=== PATIENT | female | born 1995 | race Caucasian/White ===

== ENCOUNTER → 2023-10-26 | Outpatient (CLI) | payer SELFPAY, OTHER ==
--- NOTE | 2023-10-26 07:34 | US_ITS ---
STUDY: ULTRASOUND OF THE FEMALE PELVIS - COMPLETE REASON FOR EXAM: Female, 28 years old. Pelvic pain; h/o endometriosis . Prior surgery for removal of a left ovarian cyst. LMP: October 21, 2023. TECHNIQUE: Transabdominal and Transvaginal TECHNICAL QUALITY: Adequate. COMPARISON: None. FINDINGS: The uterus is retroverted and is in a midline position. The uterus measures 8.4 cm x 5.7 cm x 4.1 cm. Normal uterine cervix. The endometrium measures 3 mm in thickness, and is heterogeneous (striated). There is no demonstrated endometrial mass. There is no demonstrated myometrial mass. I.U.D. - The patient does not have an I.U.D. The right ovary is visualized. The right ovary measures 4.2 cm x 3.1 cm x 2.1 cm. There is no right ovarian cyst or ovarian mass. There is no visualized right adnexal mass or complex lesion. There is normal arterial and normal venous vascularity. The left ovary is visualized. The left ovary measures 2.4 cm x 1.8 cm x 1.4 cm. There is no left ovarian cyst or ovarian mass. There is no visualized left adnexal mass or complex lesion. There is normal arterial and normal venous vascularity. Small amount of free fluid is seen adjacent to the left ovary. US/Pelvic w/ Transvaginal IMPRESSION: Normal female pelvis. Small amount of free fluid is seen adjacent to the left ovary. Electronically Signed: Chaim Duenas MD at 15:08 EDT ,
== END | disposition home or self-care (01) ==
PROVIDERS: PCP Physician Assistant; Referring Provider Nurse Practitioner Family; Visit Provider Nurse Practitioner Family
DX: R10.2 Pelvic and perineal pain (principal)
CPT/HCPCS: 76830; 76856